=== PATIENT | female | born 1995 | race Caucasian/White ===

== ENCOUNTER 2018-01-06 12:25 | Emergency (ER) | payer OTHER ==
[2018-01-06 12:37] VITALS: BMI 27.8
[2018-01-06 12:40] VITALS: RESP 18; O2SAT 100
[2018-01-06 13:34] LABS: BASO % 0.6 % (0.0-2.0); EOS # 0.1 K/uL (0.0-0.7); HEMOGLOBIN 12.7 g/dL (11.0-16.0); LYMPH # 2.3 K/uL (1.0-4.3); LYMPH % 31.6 % (20.0-40.0); MEAN CELL VOLUME 89.8 fL (81.0-99.0); MEAN CORPUSCULAR HEMOGLOBIN 30.1 pg (27.0-31.0); MEAN CORPUSCULAR HGB CONC 33.5 g/dL (33.0-37.0); MEAN PLATELET VOLUME 9.7 fL (7.2-11.7); MONO # 0.4 K/uL (0.0-0.8); MONO % 5.2 % (0.0-10.0); NEUT # 4.5 K/uL (1.8-7.0); NEUT % 61.6 % (50.0-75.0); RBC 4.24 Mil/uL (3.80-5.20); RED CELL DISTRIBUTION WIDTH 14.4 % (11.5-14.5); WHITE BLOOD COUNT 7.3 K/uL (4.8-10.8)
[2018-01-06 13:46] LABS: ALB/GLOB RATIO 1.4 (1.0-2.1); ALBUMIN 4.5 g/dL (3.5-5.0); GFR AFRICAN-AMERICAN > 60; GFR NON-AFRICAN AMERICAN > 60; LIPASE 136 U/L (23-300)
[2018-01-06 13:47] LABS: ALT/SGPT 24 U/L (9-52); AST/SGOT 31 U/L (14-36); BLOOD UREA NITROGEN 12 mg/dL (7-17)
[2018-01-06 14:00] LABS: SQUAMOUS EPITHIAL 1 /hpf (0-5); URINE BILIRUBIN NEGATIVE (NEGATIVE); URINE BLOOD NEGATIVE (NEGATIVE); URINE CLARITY Clear (Clear); URINE COLOR Yellow (YELLOW); URINE GLUCOSE (UA) NORMAL (Normal); URINE LEUKOCYTE ESTERASE NEG Leu/uL (Negative); URINE PROTEIN NEGATIVE (NEGATIVE); URINE UROBILINOGEN NORMAL mg/dL (0.2-1.0)
--- NOTE | 2018-01-06 14:56 | US ---
Date of service: 01/06/2018 HISTORY: upper abd pain - ? h/o gallstones COMPARISON: None. TECHNIQUE: Grayscale imaging was performed. FINDINGS: LIVER: Measures 14.9 cm. Normal echogenicity of the liver parenchyma. No mass. No intrahepatic bile duct dilatation. GALLBLADDER: There is a solitary 6 mm mobile gallstone No wall thickening, pericholecystic fluid. The sonographic Barbosa's sign is negative. COMMON BILE DUCT: Measures 4.0 mm. No stones. No dilatation. PANCREAS: Unremarkable as visualized. No mass. No ductal dilatation. RIGHT KIDNEY: Measures 10.6cm. Normal echogenicity. No calculus, mass, or hydronephrosis. LEFT KIDNEY: Measures 10.7cm. Normal echogenicity. No calculus, mass, or hydronephrosis. SPLEEN: Normal in size and contour. No mass. AORTA: No aneurysmal dilatation. IVC: Unremarkable. OTHER FINDINGS: None. IMPRESSION: Solitary 6 mm mobile gallstone. No evidence for acute cholecystitis.
[2018-01-06 15:34] VITALS: BP 114/72; PULSE 79; TEMP 98.8
--- NOTE | 2018-01-06 16:27 | C.PDOC ---
History Of Present Illness 22yo female comes with complaints of upper abdominal pain for the past 1-2 months with associated nausea. She denies any vomiting, fever, dysuria, hematuria, back pain and offers no other complaints. Patient had a US in 11/14 which showed gallstones; she was instructed to follow up with GI specialist but has not done so. Time Seen by Provider: 01/06/18 13:10 Chief Complaint (Nursing): Abdominal Pain History Per: Patient History/Exam Limitations: no limitations Onset/Duration Of Symptoms: Persistent Current Symptoms Are (Timing): Still Present Location Of Pain/Discomfort: RUQ, LUQ Quality Of Discomfort: "Pain" Associated Symptoms: Nausea. denies: Fever, Vomiting, Diarrhea, Back Pain, Urinary Symptoms Additional History Per: Patient Past Medical History Reviewed: Historical Data, Nursing Documentation, Vital Signs Vital Signs: Last Vital Signs Temp 98.8 F 01/06/18 15:24 Pulse 79 01/06/18 15:24 Resp 18 01/06/18 15:24 BP 114/72 01/06/18 15:24 Pulse Ox 100 01/06/18 16:30 - Medical History PMH: Gall Bladder Disease (? stones) Surgical History: Family History: States: Unknown Family Hx - Social History Hx Alcohol Use: No Hx Substance Use: No - Immunization History Hx Tetanus Toxoid Vaccination: Yes Hx Influenza Vaccination: Yes Hx Pneumococcal Vaccination: Yes Review Of Systems Except As Marked, All Systems Reviewed And Found Negative. Constitutional: Negative for: Fever, Chills Cardiovascular: Negative for: Chest Pain Gastrointestinal: Positive for: Nausea, Abdominal Pain. Negative for: Vomiting Genitourinary: Negative for: Dysuria, Frequency, Hematuria Musculoskeletal: Negative for: Back Pain Physical Exam - Physical Exam Appears: Non-toxic, No Acute Distress Skin: Normal Color Head: Normacephalic Eye(s): bilateral: Normal Inspection Neck: Normal ROM, Supple Chest: Symmetrical Cardiovascular: Rhythm Regular Respiratory: Normal Breath Sounds Gastrointestinal/Abdominal: Soft, Tenderness (epigastric and right upper quadrant tenderness; no Barbosa's sign), No Guarding, No Rebound Back: Normal Inspection, No CVA Tenderness Extremity: Normal ROM Neurological/Psych: Oriented x3 ED Course And Treatment - Laboratory Results Result Diagrams: 01/06/18 13:31 01/06/18 13:31 O2 Sat by Pulse Oximetry: 100 (RA) Pulse Ox Interpretation: Normal Medical Decision Making Medical Decision Making: Plan: -- Labs -- UA -- US abdomen Labs reviewed, no clinically significant abnormalities. US Abdomen FINDINGS: LIVER: Measures 14.9 cm. Normal echogenicity of the liver parenchyma. No mass. No intrahepatic bile duct dilatation. GALLBLADDER: There is a solitary 6 mm mobile gallstone No wall thickening, pericholecystic fluid. The sonographic Barbosa's sign is negative. COMMON BILE DUCT: Measures 4.0 mm. No stones. No dilatation. PANCREAS: Unremarkable as visualized. No mass. No ductal dilatation. RIGHT KIDNEY: Measures 10.6cm. Normal echogenicity. No calculus, mass, or hydronephrosis. LEFT KIDNEY: Measures 10.7cm. Normal echogenicity. No calculus, mass, or hydronephrosis. SPLEEN: Normal in size and contour. No mass. AORTA: No aneurysmal dilatation. IVC: Unremarkable. OTHER FINDINGS: None. IMPRESSION: Solitary 6 mm mobile gallstone. No evidence for acute cholecystitis. Patient reports feeling better. Informed of US and lab results. Patient instructed to follow up with PMD in 2-3 days. Disposition - Disposition Referrals: Lucia Hutchison MD [Staff Provider] - Disposition: HOME/ ROUTINE Disposition Time: 15:00 Condition: GOOD Additional Instructions: FAYE FITZGERALD, thank you for letting us take care of you today. Your provider was Lorne Mar DO and you were treated for STOMACH PAIN. The emergency medical care you received today was directed at your acute symptoms. If you were prescribed any medication, please fill it and take as directed. It may take several days for your symptoms to resolve. Return to the Emergency Department if your symptoms worsen, do not improve, or if you have any other problems. Please contact your doctor or call one of the physicians/clinics you have been referred to that are listed on the Patient Visit Information form that is included in your discharge packet. Bring any paperwork you were given at discharge with you along with any medications you are taking to your follow up visit. Our treatment cannot replace ongoing medical care by a primary care provider outside of the emergency department. Thank you for allowing the [facility] team to be part of your care today. Follow up with your primary care doctor in 2-3 days for re-evaluation and further management. Instructions: Gallstones (DC) Forms: [facility] (Palestinian), Work Excuse - Clinical Impression Clinical Impression: Cholecystitis - Scribe Statement The provider has reviewed the documentation as recorded by the Kamini Marcos Provider Attestation: All medical record entries made by the Kamini were at my direction and personally dictated by me. I have reviewed the chart and agree that the record accurately reflects my personal performance of the history, physical exam, medical decision making, and the department course for this patient. I have also personally directed, reviewed, and agree with the discharge instructions and disposition.
== END 2018-01-06 15:34 | disposition home or self-care (01) ==
LOC: C.ER 12:25
DX: K81.9 Cholecystitis, unspecified (principal)

== ENCOUNTER 2018-01-31 05:43 | Day surgery (SDC) | payer OTHER ==
[2018-01-20 14:20] VITALS: BMI 28.9
[2018-01-31] MEDS ORDERED: Lidocaine 1% 20 MG/2 ML PF AMP ONE ×2 (07:24→07:52)
[2018-01-31] MEDS ORDERED: ceFAZolin IV 1 gm in Dextrose 2 GM/100 ML BAG IVPB ONE (07:24)
[2018-01-31] MEDS ORDERED: Propofol 10 mg/ml Inj (20 ML) ONE (07:37)
[2018-01-31] MEDS ORDERED: Midazolam 2 MG/2 ML VIAL ONE (07:37)
[2018-01-31] MEDS ORDERED: Lidocaine 4% (Laryng-O-Jet) Kit MM ONE (07:40)
[2018-01-31] MEDS ORDERED: Bupivacaine 0.25% 20 ML INJ IJ ONE (07:47)
[2018-01-31] MEDS ORDERED: Lidocaine Hydrochloride 5 ML INJ ONE (07:58)
[2018-01-31] MEDS ORDERED: Neostigmine Methylsulfate 3mg/3ml Syringe IV ONE (08:26)
--- NOTE | 2018-01-31 09:14 | PCM.OP ---
Operative Report - Operative Report Date of Surgery/Procedure: 01/31/18 Time of Surgery/Procedure: 08:00 Surgeon: Lucia Hutchison MD Consulting Technical Director: Cedrick West DO (PGY4 resident) Anesthesia/Sedation: GETA. 1% Lidocaine+0.25 Marcaine mix Pre-Operative Diagnosis: Symptomatic Cholelithiasis. Umbilical hernia. Overweight. BMI 28 Post-Operative Diagnosis: Symptomatic Cholelithiasis, chronic cholecystitis. Umbilical hernia. Overweight. BMI 28 Indication for Surgery: 22 Female with recurrent symptomatic cholelithiasis over last two months with US evidence of gallstones seen in the office. Detailed HPI per clinical chart. Taken to the operating room for laparoscopic, robotic assisted cholecystectomy. Patient understands the risks and benefits of the procedure as documented in the clinic chart but specifically risk of cystic duct leak and common bile duct injury and has consented to the procedure. Operative Findings: Fluid filled gallbladder, mildly inflammed. Thin omental adhesions to fundus. Cystic duct/CBD flow confirmed using Firefly fluorescence prior to clipping and dividing. Clips in place on cystic duct and cystic artery at end of case without evidence of bleeding or bile leak. 1cm fat containing umbilical hernia Procedure/Operation Description: PROCEDURE PERFORMED: Laparoscopic, Robotic Assisted Cholecystectomy with Intraoperative Indigocyanine florescence. Primary umbilical hernia repair. DETAILS OF OPERATION: The patient was given a preoperative dose of Ancef 2g 20 minutes before the incision. SCD boots were placed for DVT prophylaxis. The patient voided in pre-op immediately prior to surgery and no sky was placed. An orogastric tube placed in order to empty the stomach after the induction of general anesthesia. Upper body warmer placed. The abdomen was prepped and draped in sterile fashion. Timeout performed prior to incision. All incisions made using 11 blade scalpel following injection of local anesthisa to skin site. A vertical incision was made through the umbilicus the fascia identifiec. Fat containing umbilicla hernia noted. An 8mm robtoic optically vieweing trocar with 0 degree 5mm laparoscope was inserted and intra-abdominal entry gained under direct visuion and the abdomen was insufflated to 15 mmHg pressure with CO2. The laparoscope was then re-inserted and no evidence of injury from initial entry noted. We then placed our additional 3 working ports, all 8mm robot ports. One in the right mid abdomen, one in right lateral subcostal, and another in the left mid- upper abdomen, all placed under direct vision. The patient was placed in slight reverse trendelberg and right side up. A face protecting foam was placed over the patient's face and the robot was docked to the patient. Robotic instruments were then inserted under direct visualization. A prograsp retractor in the right lateral port, fenestrated bipolar in right medial port, and monopolar cautery in the left abdominal port. . The fundus of the gallbladder was identified beneath the liver edge and retracted to the right upper quadrant with the prograsp grasper and locked in place. The neck of the gallbladder was visualized. There were minimal omental adhesions to the gallbladder that were taken down with a cominbation of blunt dissection and monopolar hook cautery. The peritoneal attachments from the lateral portion of the gallbladder/cystic duct junction were gently dissected and divided to open up the Ramsay of Calot. The Ramsay of Calot was then dissected up onto the liver bed posterior to the gallbladder in order to ensure that this was the cystic duct and not tenting of the common bile duct. The peritoneal attachments on the medial portion of the gallbladder going up to the side of the liver were taken. The critical view was obtained. The duct was then doubly clipped and ligated and the clips were inspected. The cystic artery was identified and was divided between clips. The gallbladder was dissected free from the liver bed using electrocautery and placed this in an endo catch bag. Once this was done, the abdomen was reinspected. The clips were in good position on the cystic artery and duct stumps. Robotic instruments were withdrawn under direct vision and the robot was then undocked from the patient. Robotic Camera was resinserted throuhg the left abdominal port and gallbladder specimen was withdrawn through the umbilical port. Once this was done, the ports were removed from the abdomen and the abdomen was desufflated with air. The umbilical site skin incision was enlarged to address fixing the umbilical hernia. An 11 blade was used to open the umbilical incision an additional 5mm, the fascial edge were identified and fat contents of the hernia resected and ligated and sent off. Fascial defect measured approximately 12mm and was with interrupted 0-vicryl suture x3. The skin incisions were closed with 4-0 monocryl sutures and finally dermabond. The patient tolerated the procedure well and was extubated in the operating room and brought to recovery in stable condition. I was present for the entirety of the operation. All sponge, needle and instrument counts were correct. Estimated Blood Loss: 5mL Complications: none Specimen: Gallbladder. Umbilical hernia contents Discharge & Condition: Above
[2018-01-31] MEDS ORDERED: Lactated Ringer's 1,000 ML IV ONE (09:20)
--- NOTE | 2018-01-31 09:28 | PCM.SURG1 ---
Surgeon's Initial Post Op Note - Surgeon's Notes Surgeon: Dr Hutchison Crystalizer Operator: Dr Franklin PGY4, Farhana FRASERA Type of Anesthesia: General Endo Pre-Operative Diagnosis: symptomatic cholelithiasis Operative Findings: see report Post-Operative Diagnosis: as above Operation Performed: robotic cholecystectomy Specimen/Specimens Removed: gallbladder Estimated Blood Loss: EBL {In ML}: 5 Blood Products Given: N/A Drains Used: No Drains Post-Op Condition: Good Date of Surgery/Procedure: 01/31/18 Time of Surgery/Procedure: 09:28
[2018-01-31] MEDS: HYDROmorphone 0.5 mg/0.5 ml ISec IVP PRN ×2 (09:30→09:50)
[2018-01-31 14:51] VITALS: BP 107/61; PULSE 79; RESP 18; TEMP 97.8; O2SAT 99
== END 2018-01-31 13:35 | disposition home or self-care (01) ==
LOC: C.SDS 05:43
PROVIDERS: ATTEND Surgery
DX: K80.20 Calculus of gallbladder without cholecystitis without obstruction (principal); K80.10 Calculus of gallbladder with chronic cholecystitis without obstruction; K42.9 Umbilical hernia without obstruction or gangrene; Z68.28 Body mass index [BMI] 28.0-28.9, adult; E66.3 Overweight
CPT/HCPCS: 47562; 49585; 88302; 88304; J0690; J1100; J1170; J1885; J2001; J2250; J2405; J2704; J2710; J2765; J3010; J7120

== ENCOUNTER 2018-02-08 09:54 | Emergency (ER) | payer OTHER ==
[2018-02-08 09:54] VITALS: BMI 28.9
[2018-02-08 10:35] VITALS: BP 120/74; PULSE 82; RESP 18; TEMP 98.8; O2SAT 100
--- NOTE | 2018-02-08 11:10 | C.PDOC ---
History Of Present Illness 22-year-old female presents to the ED for evaluation of an itchy rash around her cholecystectomy scars. Patient underwent the procedure on 02/[address] Stuart Hutchison. Patient reports she has a history of latex allergy. She tried taking Benadryl at home without relief. She denies fever, chills, shortness of breath, lip/tongue swelling. Time Seen by Provider: 02/08/18 10:31 Chief Complaint (Nursing): Abnormal Skin Integrity History Per: Patient History/Exam Limitations: no limitations Onset/Duration Of Symptoms: Days Current Symptoms Are (Timing): Still Present Quality Of Symptoms: Itching Additional History Per: Patient Past Medical History Reviewed: Historical Data, Nursing Documentation, Vital Signs Vital Signs: Last Vital Signs Temp 98.8 F 02/08/18 10:32 Pulse 82 02/08/18 10:32 Resp 18 02/08/18 10:32 BP 120/74 02/08/18 10:32 Pulse Ox 100 02/08/18 21:48 - Medical History PMH: Gall Bladder Disease ( gallstones) Denies: Chronic Kidney Disease Surgical History: Cholecystectomy (02/02/18), Family History: States: Unknown Family Hx - Social History Hx Alcohol Use: No Hx Substance Use: No - Immunization History Hx Tetanus Toxoid Vaccination: Yes Hx Influenza Vaccination: Yes Hx Pneumococcal Vaccination: Yes Review Of Systems ENT: Negative for: Other (lip/tongue swelling ) Respiratory: Negative for: Shortness of Breath Skin: Positive for: Rash Physical Exam - Physical Exam Appears: Non-toxic, Other (mildly uncomfortable ) Skin: Warm, Dry, Rash (scattered, maculopapular to abdomen. no purulent discharge ), Other (each laparoscopic cholecystectomy scar is erythematous, swollen and urticarial in appearance. each is 5-6cm in diameter ) Head: Atraumatic, Normacephalic Eye(s): bilateral: Normal Inspection Oral Mucosa: Moist Tongue: Normal Appearing, No Swelling Lips: Normal Appearing, No Swelling Throat: Normal, No Erythema, No Exudate, No Drooling Neck: Supple Extremity: Normal ROM, Capillary Refill (less than 2 seconds ) Neurological/Psych: Oriented x3, Normal Speech, Normal Cognition ED Course And Treatment O2 Sat by Pulse Oximetry: 100 (on RA) Pulse Ox Interpretation: Normal Progress Note: Claritin PO and Prednisone 20mg PO given. Will not give high dose of steriods because patient is post-op. On reassessment, patient is resting comfortably, showing no signs of distress and is stable for discharge with Rx for claritin and prednisone. Patient is advised to follow up with her surgeon within 1 week for further evalaution. Advised to return to the ED if symptoms worsen. Disposition Counseled Patient/Family Regarding: Diagnosis, Need For Followup, Rx Given - Disposition Referrals: [facility] [Outside] Disposition: HOME/ ROUTINE Disposition Time: 12:00 Condition: STABLE Additional Instructions: FOLLOW UP WITH YOUR SURGEON WITHIN 1 WEEK USE MEDICATIONS DIRECTED RETURN TO ER IF SYMPTOMS WORSEN Prescriptions: Loratadine [Claritin] 10 mg PO DAILY PRN #30 tab PRN Reason: Itching / Pruritus predniSONE [predniSONE Tab] 20 mg PO DAILY #4 tab Instructions: Rakan (DC) Forms: [facility] (Hungarian), General Discharge Instructions Print Language: LUXEMBOURGISH - Clinical Impression Clinical Impression: Allergic reaction - Scribe Statement The provider has reviewed the documentation as recorded by the Scribe (Patti Hutchison) Provider Attestation: All medical record entries made by the Scribe were at my direction and personally dictated by me. I have reviewed the chart and agree that the record accurately reflects my personal performance of the history, physical exam, medical decision making, and the department course for this patient. I have also personally directed, reviewed, and agree with the discharge instructions and disposition.
== END 2018-02-08 12:14 | disposition home or self-care (01) ==
LOC: C.ER 09:54
DX: T78.40XA Allergy, unspecified, initial encounter (principal)

== ENCOUNTER 2018-03-11 12:26 | Emergency (ER) | payer SELFPAY ==
[2018-03-11 12:39] VITALS: RESP 18; TEMP 98.9; O2SAT 100; BMI 27.9
[2018-03-11] MEDS ORDERED: Sodium Chloride 0.9% 1,000 ML IV ONE (13:35)
--- NOTE | 2018-03-11 13:35 | C.PDOC ---
History Of Present Illness 23 year old female presents to the emergency department with complaints right mid/lower quadrant pain for the last two weeks. Patient reports that the pain is intermittent, localized, and associated with nausea. Pain is only present when sitting up or walking, and resolves when she laws on her back. Patient has a past surgical history of an umbilical hernia repair in 01/2018. Patient has no other associated symptoms, and no menses were noted on IUD. R MID/LQ PAIN X 2 WEEKS. INTERMIT LOCALIZED. OCC NAUSEA. PRESENT ONLY WHEN SITS UP OR WALKING, RESOLVES WHEN SUPINE. PSH EDWIGE, [facility] HERNIA REPAIR 01/2018. NO OTHER ASSOC SX. NO MENSES ON IUD EXAM NAD NONTOXIC ABD +R MID/LQ TEND SOFT NO R/G REMAINDER NEG Time Seen by Provider: 03/11/18 12:52 Chief Complaint (Nursing): Abdominal Pain History Per: Patient History/Exam Limitations: no limitations Onset/Duration Of Symptoms: Other (2 weeks) Current Symptoms Are (Timing): Still Present Location Of Pain/Discomfort: RLQ, Other (right mid quadrant) Associated Symptoms: Nausea Alleviating Factors: Other (supine) Past Medical History Reviewed: Historical Data, Nursing Documentation, Vital Signs Vital Signs: Last Vital Signs Temp 98.9 F 03/11/18 12:39 Pulse 78 03/11/18 12:39 Resp 18 03/11/18 12:39 BP 121/67 03/11/18 12:39 Pulse Ox 100 03/11/18 12:39 - Medical History PMH: Gall Bladder Disease ( gallstones) Denies: Chronic Kidney Disease Surgical History: Cholecystectomy (02/02/18), Family History: States: Unknown Family Hx - Social History Hx Alcohol Use: No Hx Substance Use: No - Immunization History Hx Tetanus Toxoid Vaccination: Yes Hx Influenza Vaccination: Yes Hx Pneumococcal Vaccination: Yes Review Of Systems Except As Marked, All Systems Reviewed And Found Negative. Constitutional: Negative for: Fever, Chills Gastrointestinal: Positive for: Nausea, Abdominal Pain Physical Exam - Physical Exam Appears: Non-toxic, No Acute Distress Skin: Warm, Dry Head: Atraumatic, Normacephalic Eye(s): bilateral: Normal Inspection Oral Mucosa: Moist Neck: Normal, Supple Chest: Symmetrical Cardiovascular: Rhythm Regular, No Murmur Respiratory: Normal Breath Sounds, No Rales, No Rhonchi, No Wheezing Gastrointestinal/Abdominal: Soft, Tenderness (right/mid lower quadrant tenderness), No Guarding, No Rebound Extremity: Normal ROM (all extremities) Neurological/Psych: Oriented x3, Normal Speech, Normal Cognition ED Course And Treatment - Laboratory Results Result Diagrams: 03/11/18 13:44 03/11/18 13:44 O2 Sat by Pulse Oximetry: 100 (RA) Pulse Ox Interpretation: Normal Progress Note: Plan: CT Abdomen and Pelvis. CMP. Lipase. CBC. Morphine 2mg IVP. NaCl IV Fluids. Urinalysis Progress - Re-Evaluation Re-evaluation Note: 03/11/18 15:21 APPEARS COMFORTABLE NAD. NO S/S ACUTE ABD. CT REPORT REVIEWED. DC FU PMD - Data Reviewed Data Reviewed: Lab, Diagnostic imaging, Old records Disposition Counseled Patient/Family Regarding: Studies Performed, Diagnosis, Need For Followup, Rx Given - Disposition Referrals: YOUR,PMD [Other] Disposition: HOME/ ROUTINE Disposition Time: 15:21 Condition: IMPROVED Prescriptions: Dicyclomine [Bentyl] 20 mg PO TID PRN #12 tab PRN Reason: Pain Famotidine [Pepcid AC] 10 mg PO QN #30 tablet Instructions: Acute Abdomen (Belly Pain), Adult (DC) Forms: [facility] (Iranian) - Clinical Impression Clinical Impression: Abdominal pain - Scribe Statement The provider has reviewed the documentation as recorded by the Scribe (Yash Sethi) Provider Attestation: All medical record entries made by the Scribe were at my direction and personall y dictated by me. I have reviewed the chart and agree that the record accurately reflects my personal performance of the history, physical exam, medical decision making, and the department course for this patient. I have also personally directed, reviewed, and agree with the discharge instructions and disposition.
[2018-03-11 13:45] LABS: SQUAMOUS EPITHIAL 1 /hpf (0-5); URINE BILIRUBIN NEGATIVE (NEGATIVE); URINE BLOOD NEGATIVE (NEGATIVE); URINE CLARITY Clear (Clear); URINE COLOR Yellow (YELLOW); URINE GLUCOSE (UA) NORMAL (Normal); URINE LEUKOCYTE ESTERASE NEG Leu/uL (Negative); URINE PROTEIN NEGATIVE (NEGATIVE); URINE UROBILINOGEN NORMAL mg/dL (0.2-1.0)
[2018-03-11 13:47] LABS: BASO # 0.1 K/uL (0.0-0.2); BASO % 0.8 % (0.0-2.0); EOS # 0.2 K/uL (0.0-0.7); EOS % 3.1 % (0.0-4.0); HEMOGLOBIN 13.3 g/dL (11.0-16.0); LYMPH # 2.4 K/uL (1.0-4.3); LYMPH % 31.4 % (20.0-40.0); MEAN CORPUSCULAR HEMOGLOBIN 29.8 pg (27.0-31.0); MEAN CORPUSCULAR HGB CONC 33.5 g/dL (33.0-37.0); MEAN PLATELET VOLUME 10.7 fL (7.2-11.7); MONO # 0.4 K/uL (0.0-0.8); MONO % 5.6 % (0.0-10.0); NEUT # 4.6 K/uL (1.8-7.0); NEUT % 59.1 % (50.0-75.0); RBC 4.48 Mil/uL (3.80-5.20); RED CELL DISTRIBUTION WIDTH 14.2 % (11.5-14.5); WHITE BLOOD COUNT 7.7 K/uL (4.8-10.8)
[2018-03-11] MEDS ORDERED: Sodium Chloride 0.9% 1,000 ML ONE (14:02)
[2018-03-11 14:19] LABS: ALB/GLOB RATIO 1.7 (1.0-2.1); ALBUMIN 4.7 g/dL (3.5-5.0); ALT/SGPT 23 U/L (9-52); AST/SGOT 23 U/L (14-36); BLOOD UREA NITROGEN 20 mg/dL (7-17); CALCIUM 9.5 mg/dl (8.6-10.4); GFR NON-AFRICAN AMERICAN > 60; LIPASE 184 U/L (23-300)
[2018-03-11] MEDS ORDERED: Iodixanol 320 MG/ML 100 ML BOTTLE IV ONE (14:29)
[2018-03-11 14:39] VITALS: BP 102/69; PULSE 82
--- NOTE | 2018-03-11 15:16 | CT ---
Date of service: 03/11/2018 PROCEDURE: CT Abdomen and Pelvis with contrast HISTORY: abd pain R/Q COMPARISON: Abdominal ultrasound performed 01/06/18 TECHNIQUE: Contrast dose: 100 mL Visipaque IV Radiation dose: Total exam DLP = 397.28 mGy-cm. This CT exam was performed using one or more of the following dose reduction techniques: Automated exposure control, adjustment of the mA and/or kV according to patient size, and/or use of iterative reconstruction technique. FINDINGS: LOWER THORAX: No visible consolidation, pleural effusion, or pneumothorax. LIVER: Unremarkable. GALLBLADDER AND BILE DUCTS: Not visualized; either surgically resected or contracted. Surgical clips are not visualized. PANCREAS: Unremarkable. SPLEEN: Unremarkable. ADRENALS: Unremarkable. KIDNEYS AND URETERS: The kidneys enhance symmetrically. No hydronephrosis or obstructing calculus identified. VASCULATURE: No aortic aneurysm. BOWEL: Gastric wall thickening may be exaggerated by under distension; gastritis is not excluded. Correlate clinically. Lack of oral contrast limits evaluation for bowel pathology. Bowel loops appear within normal limits of caliber without evidence of obstruction. APPENDIX: The appendix appears within normal limits of caliber. No secondary signs of acute appendicitis. PERITONEUM: No significant free fluid. No definite free air. LYMPH NODES: No bulky adenopathy identified. BLADDER: Unremarkable. REPRODUCTIVE: The uterus is present. IUD. Probable bilateral small ovarian cysts. BONES: No acute osseous abnormality is detected. OTHER FINDINGS: Marked soft tissue thickening at the level of the umbilicus. IMPRESSION: Gastric wall thickening may be exaggerated by under distension; gastritis is not excluded. Correlate clinically. IUD. Probable bilateral small ovarian cysts. Marked soft tissue thickening at the level of the umbilicus.
== END 2018-03-11 15:48 | disposition home or self-care (01) ==
LOC: C.ER 12:26
DX: R10.9 Unspecified abdominal pain (principal)
CPT/HCPCS: 74177; 80053; 81001; 83690; 85025; 96374; 99284; J2270; J7030; Q9967

== ENCOUNTER 2018-10-06 08:43 | Emergency (ER) | payer MEDICAID, OTHER ==
[2018-10-06 08:58] VITALS: BMI 26.0
[2018-10-06 09:01] VITALS: RESP 18; O2SAT 100
[2018-10-06 09:41] LABS: SQUAMOUS EPITHIAL < 1 /hpf (0-5); URINE BILIRUBIN NEGATIVE (NEGATIVE); URINE BLOOD NEGATIVE (NEGATIVE); URINE CLARITY Hazy (Clear); URINE COLOR Yellow (YELLOW); URINE GLUCOSE (UA) NORMAL (Normal); URINE LEUKOCYTE ESTERASE NEG Leu/uL (Negative); URINE PROTEIN NEGATIVE (NEGATIVE); URINE UROBILINOGEN NORMAL mg/dL (0.2-1.0)
--- NOTE | 2018-10-06 10:32 | C.PDOC ---
History Of Present Illness 23 year old female presents to ED with complaint of vaginal itching for the past 3 days. Patient complains of itching to the inside and outside of the area. Patient notes scant vaginal bleeding, although her period began today. Patient states that she was applying intravaginal clotrimazole with no improvement. Patient denies recent antibiotic use. She states she was not able to get an appointment with her doctor for another month, prompting her ER visit. She denies vaginal discharge, fever, chills, hematuria, dysuria, and urinary frequency, denies abdominal pain. Time Seen by Provider: 10/06/18 09:17 Chief Complaint (Nursing): Female Genitourinary History Per: Patient History/Exam Limitations: no limitations Onset/Duration Of Symptoms: Days (3) Current Symptoms Are (Timing): Still Present Associated Symptoms: denies: Fever, Chills, Nausea, Vomiting, Urinary Symptoms Abnormal Vaginal Bleeding: No Last Menstral Period: currently menstruating Past Medical History Reviewed: Historical Data, Nursing Documentation, Vital Signs Vital Signs: Last Vital Signs Temp 98.8 F 10/06/18 08:58 Pulse 79 10/06/18 08:58 Resp 18 10/06/18 08:58 BP 109/67 10/06/18 08:58 Pulse Ox 100 10/06/18 08:58 Primary Care Provider: Chet Merida A - Medical History PMH: Gall Bladder Disease ( gallstones) Denies: Chronic Kidney Disease Surgical History: Cholecystectomy (02/02/18), (x2) Family History: States: Unknown Family Hx - Social History Hx Alcohol Use: No Hx Substance Use: No - Immunization History Hx Tetanus Toxoid Vaccination: No Hx Influenza Vaccination: Yes Hx Pneumococcal Vaccination: Yes Review Of Systems Constitutional: Negative for: Fever, Chills Genitourinary: Positive for: Other (vaginal itching). Negative for: Dysuria, Frequency, Hematuria, Vaginal Discharge Musculoskeletal: Negative for: Back Pain Skin: Negative for: Rash Neurological: Negative for: Weakness, Numbness Physical Exam - Physical Exam Appears: Well, Non-toxic, No Acute Distress Skin: Normal Color, Warm, Dry Head: Atraumatic, Normacephalic Neck: Normal ROM, Supple Chest: Symmetrical, No Deformity Cardiovascular: Rhythm Regular, No Murmur Respiratory: No Accessory Muscle Use, No Rales, No Rhonchi, No Wheezing Gastrointestinal/Abdominal: Soft, No Tenderness, No Distention Back: No CVA Tenderness Pelvic: Normal External Exam (chaperoned by Lana (RN) ), Vaginal Bleeding (trace blood in the vagina, no IUD string noted), No Cervical Motion Tenderness, No Adnexal Tenderness Extremity: Capillary Refill (<2 seconds) Neurological/Psych: Oriented x3, Normal Speech, Normal Cognition ED Course And Treatment - Laboratory Results Lab Results: Urine Color Yellow (YELLOW) 10/06/18 09:31 Urine Clarity Hazy (Clear) 10/06/18 09:31 Urine pH 5.0 (5.0-8.0) 10/06/18 09: Ur Specific Hatch 1.024 (1.003-1.030) 10/06/18 09:31 Urine Protein Negative mg/dL (NEGATIVE) 10/06/18 09:31 Urine Glucose (UA) Normal mg/dL (Normal) 10/06/18 09:31 Urine Ketones Negative mg/dL (NEGATIVE) 10/06/18 09:31 Urine Blood Negative (NEGATIVE) 10/06/18 09:31 Urine Nitrate Negative (NEGATIVE) 10/06/18 09:31 Urine Bilirubin Negative (NEGATIVE) 10/06/18 09:31 Urine Urobilinogen Normal mg/dL (0.2-1.0) 10/06/18 09:31 Ur Leukocyte Esterase Neg Conrado/uL (Negative) 10/06/18 09:31 Urine WBC (Auto) 1 /hpf (0-5) 10/06/18 09:31 Urine RBC (Auto) 1 /hpf (0-3) 10/06/18 09:31 Ur Squamous Epith Cells < 1 /hpf (0-5) 10/06/18 09:31 O2 Sat by Pulse Oximetry: 100 (in RA) Pulse Ox Interpretation: Normal - Other Rad Pelvis X-ray X-Ray: Interpreted by Me, Viewed By Me Interpretation: IMPRESSION: IUD identified. Position relative to uterus/endometrium cannot be determined on the basis of this examination alone. Medical Decision Making Medical Decision Making: Impression: 23 year old female presents to ED with complaint of vaginal itching for the past 3 days. Initial Plan: chlamydia/gc ordered urine culture pelvis x-ray ordered UA POC U-preg [id number] pt comfortable; no abdominal pain. iud noted on xray. 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 advised to return to ed for pain Disposition Counseled Patient/Family Regarding: Studies Performed, Diagnosis, Need For Followup, Rx Given - Disposition Disposition: HOME/ ROUTINE Disposition Time: 12:11 Condition: GOOD Additional Instructions: Continue to use clotrimazole in vagina nightly for one week . Eat yogurts with live cultures. Follow up with your transplant case manager as scheduled; discuss iud and other forms of control. Return to ER for any worse symptoms. RX SENT TO [facility] [address] Prescriptions: Fluconazole [Diflucan] 150 mg PO ONCE #1 tab Instructions: Yeast Infection (DC) Forms: [facility] (Malay), General Discharge Instructions - Clinical Impression Clinical Impression: Vaginitis - PA / INTERIOR DECORATOR / Resident Statement MD/DO has reviewed & agrees with the documentation as recorded. (Lizzie Sotelo) - Scribe Statement The provider has reviewed the documentation as recorded by the Scribe (Lizzie Sotelo) All medical record entries made by the Scribe were at my direction and pers onally dictated by me. I have reviewed the chart and agree that the record accurately reflects my personal performance of the history, physical exam, medical decision making, and the department course for this patient. I have also personally directed, reviewed, and agree with the discharge instructions and disposition.
[2018-10-06 11:58] VITALS: BP 99/61; PULSE 64; TEMP 98.6
--- NOTE | 2018-10-06 11:58 | RAD ---
Date of service: 10/06/2018 PROCEDURE: Radiographs of the pelvis. HISTORY: eval for iud COMPARISON: None. TECHNIQUE: 1 view obtained. FINDINGS: BONES: Pelvic Bones: Unremarkable. Hips: Grossly unremarkable. JOINTS: Sacroiliac Joints: Unremarkable. Pubic Symphysis: Unremarkable. OTHER FINDINGS: Intrauterine device identified in the mid pelvis left parasagittal. IMPRESSION: IUD identified. Position relative to uterus/endometrium cannot be determined on the basis of this examination alone.
== END 2018-10-06 12:26 | disposition home or self-care (01) ==
LOC: C.ER 08:43
DX: N76.0 Acute vaginitis (principal)